=== PATIENT | female | born 1935 | race Caucasian/White ===

== ENCOUNTER 2021-09-12 12:15 | Inpatient (IN) ==
[2021-09-12] MEDS ORDERED: DEXTROSE 50% 25 GM/50 ML VIAL IV STA (13:53)
[2021-09-12] MEDS ORDERED: INSULIN REGULAR 100 UNIT/ML IV STA (13:53)
[2021-09-12] MEDS ORDERED: SODIUM POLYSTYRENE SULFATE 15 GM/60 ML BOTTLE PO STA ×2 (13:53→14:05)
[2021-09-12] MEDS ORDERED: diphenhydrAMINE CAP 25 MG CAPSULE PO PRN (14:03)
[2021-09-12] MEDS ORDERED: hydrALAZINE 20 MG/1 ML VIAL IV PRN (14:03)
[2021-09-12] MEDS ORDERED: DOCUSATE SODIUM 100 MG CAPSULE PO PRN (14:03)
[2021-09-12] MEDS ORDERED: ACETAMINOPHEN 325 MG TABLET PO PRN (14:03)
[2021-09-12] MEDS ORDERED: ALUMINUM/MAGNES/SIMETH MAX STR 30 ML UDCUP PO PRN (14:03)
[2021-09-12] MEDS ORDERED: MAGNESIUM SULF RIDER 2 GM/50 ML PREMIX IV PRN (14:03)
[2021-09-12] MEDS ORDERED: MAGNESIUM SULF RIDER 4 GM/100 ML PREMIX IV PRN (14:03)
[2021-09-12] MEDS ORDERED: guaiFENesin/DM ER 600-30 MG TABLET PO PRN (14:03)
[2021-09-12] MEDS ORDERED: ZALEPLON 5 MG CAPSULE PO PRN (14:03)
[2021-09-12] MEDS: MORPHINE 2 MG/1 ML SYRINGE IV PRN (15:32)
[2021-09-12 16:07] LABS: Basophils % 0.3 % (0.0-0.8); Eosinophils # 0.1 10*3/uL (0.0-0.87); Eosinophils % 1.4 % (0.00-10.9); Hematocrit 29.5 VOL% (35.7-47.0); Immature Granulocytes % 0.5 %; Immature Granulocytes Absolute 0.03 #; Lymphocytes # 1.8 10*3/uL (1.4-4.0); Mean Corpuscular HGB Conc 33.9 GM/DL (32-36); Mean Platelet Volume 9.7 FL (9.6-12.0); Monocytes # 0.7 10*3/uL (0.11-0.8); Monocytes % 10.3 % (1.7-12.7); Neutrophils % 60.5 % (38.7-73.9); Platelet Count 245 T/CUMM (130-400); Red Blood Count 3.24 MC/CUMM (3.8-5.5); Red Cell Distribution Width 14.2 % (9.3-17.3); White Blood Count 6.5 T/CUMM (4-12)
[2021-09-12 16:32] LABS: Free T4 (Free Thyroxine) 1.28 NG/DL (0.76-1.46); Thyroid Stimulating Hormone 1.58 uIU/ml (0.358-3.74)
[2021-09-12] MEDS ORDERED: DEXTROSE 50% 25 GM/50 ML SYRINGE IV ONE (17:34)
[2021-09-12] MEDS: ONDANSETRON 4 MG/2 ML VIAL IV PRN (18:47)
[2021-09-12] MEDS: ATORVASTATIN 40 MG TABLET PO SCH (20:48)
[2021-09-12] MEDS: cloNIDine 0.1 MG TABLET PO SCH ×2 (20:48→21:03)
[2021-09-12] MEDS: carvediloL 25 MG TABLET PO SCH ×3 (20:49→21:02)
[2021-09-12] MEDS: minoxidiL 2.5 MG TABLET PO SCH (20:51)
[2021-09-12] MEDS: GABAPENTIN 300 MG PO SCH ×2 (21:01→21:10)
[2021-09-13] MEDS: MORPHINE 2 MG/1 ML SYRINGE IV PRN ×3 (04:51→14:06)
[2021-09-13 05:03] LABS: Basophils % 0.8 % (0.0-0.8); Eosinophils # 0.1 10*3/uL (0.0-0.87); Eosinophils % 1.5 % (0.00-10.9); Hematocrit 27.3 VOL% (35.7-47.0); Hemoglobin 9.4 GM/DL (12.0-16.0); Immature Granulocytes % 0.4 %; Immature Granulocytes Absolute 0.02 #; Lymphocytes % 38.2 % (21.3-54.2); Mean Corpuscular HGB Conc 34.4 GM/DL (32-36); Mean Corpuscular Volume 89.5 FL (87-102); Mean Platelet Volume 9.1 FL (9.6-12.0); Monocytes # 0.7 10*3/uL (0.11-0.8); Monocytes % 13.2 % (1.7-12.7); Neutrophils % 45.9 % (38.7-73.9); Platelet Count 234 T/CUMM (130-400); Red Blood Count 3.05 MC/CUMM (3.8-5.5); Red Cell Distribution Width 14.2 % (9.3-17.3); White Blood Count 5.2 T/CUMM (4-12)
[2021-09-13 05:22] LABS: Albumin 2.4 G/DL (3.4-5.0); Bilirubin,Total 0.4 MG/DL (0.20-1.00); Calcium 8.6 MG/DL (8.5-10.1); Osmolality,Calculated 246.8 MOS/KG (273-304); Potassium 4.2 MMOL/L (3.5-5.1); Total Protein 5.4 G/DL (6.4-8.2)
[2021-09-13] MEDS ORDERED: GABAPENTIN 300 MG PO SCH (09:00)
[2021-09-13] MEDS: ONDANSETRON 4 MG/2 ML VIAL IV PRN ×2 (09:12→14:06)
[2021-09-13] MEDS: NITROFURANTOIN MACROCRYSTALS 100 MG CAPSULE PO SCH (09:12)
[2021-09-13] MEDS: carvediloL 25 MG TABLET PO SCH ×2 (09:13→22:58)
[2021-09-13] MEDS: PANTOPRAZOLE 40 MG TABLET PO SCH (09:13)
[2021-09-13] MEDS: RALOXIFENE 60 MG TABLET PO SCH (09:13)
[2021-09-13] MEDS: ASPIRIN EC 81 MG TABLET PO SCH (09:13)
[2021-09-13] MEDS: minoxidiL 2.5 MG TABLET PO SCH ×2 (09:13→22:59)
[2021-09-13] MEDS: RIVAROXABAN 10 MG TABLET PO SCH (09:26)
[2021-09-13] MEDS ORDERED: FUROSEMIDE 40 MG/4 ML VIAL IV ONE (13:48)
[2021-09-13 17:01] LABS: Bacteria,Urine Occasional /HPF (Few); RBC,Urine 2 /HPF (0-4)
[2021-09-13 17:02] LABS: Bilirubin,Urine Negative (Negative); Blood, Urine Trace mg/dL (Negative); Glucose,Urine (UA) Negative (Negative); Ketones,Urine Negative (Negative); Nitrite,Urine Negative (Negative); Protein,Urine Negative (Negative); Urine Appearance Clear (Clear); Urine Color Yellow (Yellow); Urine Specific Gravity 1.015 (1.001-1.035); Urine Urobilinogen 0.2 eU/dL (<2.0)
[2021-09-13] MEDS: ATORVASTATIN 40 MG TABLET PO SCH (21:06)
[2021-09-13] MEDS: GABAPENTIN 300 MG PO SCH (22:58)
[2021-09-13] MEDS: cloNIDine 0.1 MG TABLET PO SCH (22:58)
[2021-09-14] MEDS: MORPHINE 2 MG/1 ML SYRINGE IV PRN ×4 (00:47→22:10)
[2021-09-14] MEDS: carvediloL 25 MG TABLET PO SCH ×3 (01:24→22:09)
[2021-09-14] MEDS: cloNIDine 0.1 MG TABLET PO SCH ×2 (01:25→22:09)
[2021-09-14 05:28] LABS: Calcium 7.9 MG/DL (8.5-10.1); Osmolality,Calculated 256.9 MOS/KG (273-304); Potassium 3.7 MMOL/L (3.5-5.1)
[2021-09-14] MEDS: cefTRIAXone 1,000 MG in SODIUM CHLORIDE 0.9% 100 ML IV SCH (10:26)
[2021-09-14] MEDS: NITROFURANTOIN MACROCRYSTALS 100 MG CAPSULE PO SCH (10:27)
[2021-09-14] MEDS: minoxidiL 2.5 MG TABLET PO SCH ×2 (10:27→22:21)
[2021-09-14] MEDS: RALOXIFENE 60 MG TABLET PO SCH (10:27)
[2021-09-14] MEDS: MULTIVITAMIN (CENTRUM) TABLET PO SCH (10:27)
[2021-09-14] MEDS: ONDANSETRON 4 MG/2 ML VIAL IV PRN ×2 (10:27→22:07)
[2021-09-14] MEDS: RIVAROXABAN 10 MG TABLET PO SCH (10:27)
[2021-09-14] MEDS: ASPIRIN EC 81 MG TABLET PO SCH (10:27)
[2021-09-14] MEDS: PANTOPRAZOLE 40 MG TABLET PO SCH (10:28)
[2021-09-14] MEDS: ATORVASTATIN 40 MG TABLET PO SCH (22:08)
[2021-09-15] MEDS: GABAPENTIN 300 MG PO SCH (00:34)
[2021-09-15 05:12] LABS: Calcium 8.3 MG/DL (8.5-10.1); Osmolality,Calculated 257.8 MOS/KG (273-304); Potassium 3.8 MMOL/L (3.5-5.1)
[2021-09-15] MEDS: cefTRIAXone 1,000 MG in SODIUM CHLORIDE 0.9% 100 ML IV SCH (08:41)
[2021-09-15] MEDS: RIVAROXABAN 10 MG TABLET PO SCH (08:42)
[2021-09-15] MEDS: ASPIRIN EC 81 MG TABLET PO SCH (08:43)
[2021-09-15] MEDS: MULTIVITAMIN (CENTRUM) TABLET PO SCH (08:43)
[2021-09-15] MEDS: RALOXIFENE 60 MG TABLET PO SCH (08:43)
[2021-09-15] MEDS: carvediloL 25 MG TABLET PO SCH (08:43)
[2021-09-15] MEDS: minoxidiL 2.5 MG TABLET PO SCH (08:44)
[2021-09-15] MEDS: PANTOPRAZOLE 40 MG TABLET PO SCH (08:45)
[2021-09-15] MEDS: NITROFURANTOIN MACROCRYSTALS 100 MG CAPSULE PO SCH (08:46)
[2021-09-15] MEDS ORDERED: MEGESTROL 40 MG TABLET PO SCH (09:00)
[2021-09-15] MEDS ORDERED: LOSARTAN 50 MG TABLET PO SCH (09:00)
[2021-09-15 11:57] VITALS: BP 148/68
== END 2021-09-15 13:18 | disposition swing bed (61) | DRG 641 ==
LOC: N.ED 12:15 → N.EDINP 14:03 → N.TELES 18:10
PROVIDERS: ADMIT Internal Medicine Cardiovascular Disease; ATTEND Internal Medicine Cardiovascular Disease